=== PATIENT | male | born 1960 | race Caucasian/White ===

== ENCOUNTER → 2024-01-12 06:28 | Day surgery (SDC) | payer BC, SELFPAY | LOC: GI 06:28 | PROVIDERS: ATTENDING PHYSICIAN Internal Medicine | DX: Z12.11 Encounter for screening for malignant neoplasm of colon (principal); Z86.010 Personal history of colon polyps; K64.8 Other hemorrhoids; K57.30 Diverticulosis of large intestine without perforation or abscess without bleeding; K63.5 Polyp of colon | CPT/HCPCS: 45380; 88305 ==

== ENCOUNTER → 2024-02-13 15:55 | Outpatient (REF) | payer BC, SELFPAY | LOC: HWRCS 15:55 | PROVIDERS: ATTENDING PHYSICIAN Internal Medicine Cardiovascular Disease; FAMILY PHYSICIAN Internal Medicine | DX: R01.1 Cardiac murmur, unspecified (principal) | CPT/HCPCS: 93306 ==

== ENCOUNTER 2024-02-23 06:53 | Day surgery (SDC) | payer BC, SELFPAY | END 2024-02-23 12:00 | disposition home or self-care (01) | LOC: CATH 06:53 | PROVIDERS: ATTENDING PHYSICIAN Internal Medicine Cardiovascular Disease; FAMILY PHYSICIAN Internal Medicine; OTHER PHYSICIAN Internal Medicine Cardiovascular Disease | DX: I34.0 Nonrheumatic mitral (valve) insufficiency (principal) | CPT/HCPCS: 93312; 93320; 93325 ==

== ENCOUNTER → 2024-04-02 06:12 | Day surgery (SDC) | payer BC, SELFPAY ==
[2024-04-02] VITALS (11 sets, daily range): BP systolic 110–160; BP diastolic 61–85; BMI 27.3
[2024-04-02 07:00] LABS: Hematocrit 46.5 % (39.0-52.0); Mean Corp Hgb Conc. 34.4 g/dL (33.0-37.0); Mean Corpuscular Hgb 30.7 pg (27.0-31.0); Mean Corpuscular Volume 89.1 fL (80.0-94.0); Mean Platelet Volume 9.3 fL (7.4-10.4); Platelet Count 140 10^3/uL (130-400); Red Blood Cell Count 5.22 10^6/uL (4.70-6.10); Red Cell Dist. Width 12.7 % (11.5-14.5); White Blood Cell Count 5.9 10^3/uL (4.8-10.8)
[2024-04-02 07:02] LABS: Blood Urea Nitrogen 18 mg/dl (9-20); Calcium 9.5 mg/dl (8.4-10.2); Carbon Dioxide 29 mmol/L (22-30); Chloride 103 mmol/L (98-107); Estimated Creatinine Clearance 111 ml/min; Glucose 108 mg/dl (70-99); Potassium 4.1 mmol/L (3.5-5.1); Sodium 143 mmol/L (135-145); eGFR > 60.00
[2024-04-02] MEDS: LOW STRENGTH ASPIRIN 324 MG PO (07:22)
[2024-04-02] MEDS: NSS 297 ML IV (07:23)
[2024-04-02 08:33] LABS: ACT-LR - POC 224 Seconds (116-155)
[2024-04-02 09:35] LABS: HDL Cholesterol 41 mg/dl; LDL Cholesterol, Calculated 140 mg/dl; Total Cholesterol 196 mg/dl (50-199); Triglyceride 77 mg/dl (10-149); Very Low Density Lipoprotein 15 mg/dl (0-30)
--- NOTE | 2024-04-02 14:04 | ITS.CL.CATH ---
Business And Marketing Teacher - Catheterization
Cardiac Catheterization
Procedure Report:
LEFT HEART CATHETERIZATION
Date of Procedure: April 02, 2024
Referring: Dr. Trever Tellez
PROCEDURES:
1. Coronary angiography
2. Hemodynamic assessment of LAD with a Hope Omni wire. The iFR serially measured just above the ischemic threshold
INDICATION: Severe mitral regurgitation
ACCESS: Right radial artery, 6 Amharic sheath
HEMODYNAMICS : (mmHg)
AO (s/d) : 125/79
CORONARY FINDINGS: Pericardial calcification is noted on fluoroscopy
DOMINANCE: Right
LEFT MAIN: 30% ostial narrowing with no pressure dampening upon engagement of a 6 Amharic diagnostic catheter
LEFT ANTERIOR DESCENDING: The LAD arises normally from the left main and runs in the anterior interventricular groove. The mid LAD has an eccentric 40% stenosis that in some of the caudal views looks more significant. The iFR in the LAD measured
above the ischemic threshold at 0.94, 0.93, and 0.93 with a guide catheter disengaged from the left main (see below)
CIRCUMFLEX: The circumflex supplies a single sizable obtuse marginal branch with minor irregularities
RIGHT CORONARY ARTERY: The right coronary artery is a dominant vessel that is widely patent and supplies a moderate caliber PDA and posterolateral branch
HEMODYNAMIC ASSESSMENT OF THE LAD WITH A VOLCANO OMNI WIRE: The origin of the LAD was cannulated with a 6 Fr JL 4 guide catheter. Intravenous heparin was administered and the ACT was followed during the procedure. Two hundred micrograms of
intracoronary nitroglycerin was given through the guide catheter. The guide catheter was disengaged from the left main origin and a Hope Omni wire was advanced to the guide catheter tip and normalized to guide catheter pressure while the guide
was disengaged from the left main. The Omni wire was then carefully manipulated across the stenosis in the mid LAD with the iFR serially measuring above the ischemic threshold at 0.94, 0.93, and 0.93. The Omni wire was withdrawn to the guide
catheter tip where the resting Pd/Pa measured 1.01 confirming no significant baseline drift.
RADIATION SUMMARY: Fluoro Time (min): 5.2, Dose (mGy): 607, DAP (Gy.cm2) : 44.1
Closure Device: TR band
CONCLUSIONS
1. Noncritical coronary artery disease with moderate eccentric stenosis in the mid LAD with the iFR measuring just above the ischemic threshold at 0.94, 0.93, 0.93.
RECOMMENDATIONS
1. Follow-up with Dr. Tellez for planned mitral valve repair.
Copy to: Dr. Dominic Alcantara, Dr. Trever Tellez
== END | disposition home or self-care (01) ==
LOC: CATH 06:12
PROVIDERS: ATTENDING PHYSICIAN Internal Medicine Interventional Cardiology; OTHER PHYSICIAN Internal Medicine Cardiovascular Disease
DX: I34.0 Nonrheumatic mitral (valve) insufficiency (principal); I25.10 Atherosclerotic heart disease of native coronary artery without angina pectoris; E78.2 Mixed hyperlipidemia; Z79.82 Long term (current) use of aspirin
CPT/HCPCS: 93799; C1894; C1769; 80048; 80061; 85027; 85347; 93454; Q9967

== ENCOUNTER → 2024-04-04 10:28 | Outpatient (REF) | payer BC, SELFPAY | LOC: RAD 10:28 | PROVIDERS: ATTENDING PHYSICIAN Thoracic Surgery (Cardiothoracic Vascular Surgery); FAMILY PHYSICIAN Internal Medicine | DX: I34.0 Nonrheumatic mitral (valve) insufficiency (principal); Z01.818 Encounter for other preprocedural examination | CPT/HCPCS: 71275; 74174; Q9967 ==

== ENCOUNTER 2024-04-09 05:02 | Inpatient (IN) | payer BC, SELFPAY ==
[2024-04-05 08:24] VITALS: BMI 27.3
[2024-04-05 08:49] LABS: % Basophils 0.9 % (0-2); % Eosinophils 1.4 % (0-6); % Immature Granulocytes 0.2 % (0-0.5); % Lymphocytes 25.3 % (20.5-51.1); % Monocytes 7.2 % (1.7-9.3); Absolute Basophils 0.1 10^3/uL (0-0.2); Absolute Eosinophils 0.1 10^3/uL (0-0.7); Absolute Lymphocytes 1.5 10^3/uL (1.2-3.4); Absolute Monocytes 0.4 10^3/uL (0.1-0.6); Absolute Neutrophils 3.8 10^3/uL (1.4-6.5); Hematocrit 46.2 % (39.0-52.0); Mean Corp Hgb Conc. 34.6 g/dL (33.0-37.0); Mean Corpuscular Hgb 30.7 pg (27.0-31.0); Mean Corpuscular Volume 88.5 fL (80.0-94.0); Mean Platelet Volume 9.7 fL (7.4-10.4); Nucleated Red Blood Cells % 0 % (-); Platelet Count 144 10^3/uL (130-400); Red Blood Cell Count 5.22 10^6/uL (4.70-6.10); Red Cell Dist. Width 12.8 % (11.5-14.5); White Blood Cell Count 5.8 10^3/uL (4.8-10.8)
[2024-04-05 09:02] LABS: INR 0.95; PT 12.6 Sec (11.4-14.6)
[2024-04-05 09:03] LABS: APTT 30.5 Sec (23.4-35.0)
[2024-04-05 09:26] LABS: ALT (SGPT) 19 U/L (0-50); AST (SGOT) 25 U/L (17-59); Albumin 4.3 g/dl (3.5-5.0); Alkaline Phosphatase 74 U/L (38-126); Blood Urea Nitrogen 15 mg/dl (9-20); Calcium 10.1 mg/dl (8.4-10.2); Carbon Dioxide 27 mmol/L (22-30); Chloride 104 mmol/L (98-107); Direct Bilirubin 0.2 mg/dl (0.0-0.4); Estimated Creatinine Clearance 113 ml/min; Glucose 100 mg/dl (70-99); Potassium 4.4 mmol/L (3.5-5.1); Sodium 141 mmol/L (135-145); Total Bilirubin 0.9 mg/dl (0.2-1.3); Total Protein 6.7 g/dl (6.3-8.2); eGFR > 60.00
--- NOTE | 2024-04-05 10:16 | CM ---
Chart reviewed. Met with the patient in PAT. Reviewed preoperative and postoperative instructions and restrictions, along with showering guidelines. Gave patient 2 soaps. Patient is independent of ADLS, lives with his in a 2 STH, 3 YOON, 0
DME. Patient is agreeable to a home visit by CT Transitional RN. Plan is for the patient to return home with CT Transitional RN.
[2024-04-05 10:19] LABS: Urine Albumin Negative (Neg - Trace); Urine Bilirubin Negative (Negative); Urine Character Clear (Clear); Urine Color Yellow; Urine Glucose Negative (Negative); Urine Ketone Negative (Negative); Urine Leukocyte Negative (Negative); Urine Nitrite Negative (Negative); Urine Occult Blood Negative (Negative); Urine Urobilinogen Negative (Neg - 1+)
[2024-04-05 12:59] LABS: Glycohemoglobin (HgbA1c) 5.3 % (4.0-5.6)
[2024-04-09] VITALS (22 sets, daily range): BP systolic 98–145; BP diastolic 59–93; BMI 26.2
[2024-04-09] MEDS: BACTROBAN 2% OINTMENT 1 APPLIC NASAL ×2 (05:49→19:17)
[2024-04-09] MEDS: MAGNESIUM OXIDE 500 MG PO (05:50)
[2024-04-09] MEDS: LOPRESSOR 25 MG PO (05:50)
[2024-04-09] MEDS: PROTONIX 40 MG PO (05:50)
--- NOTE | 2024-04-09 06:01 | W.CVOR.SURPR ---
CVOR Surgeon Immed Pre Op
-
I have examined this patient prior to performance of the scheduled procedure.
The patient's condition is unchanged from the time of the dictated/written History and
Physical and the patient is able to undergo the scheduled procedure.
MV repair
[2024-04-09 07:46] LABS: ACT+ - POC 101 Seconds (82-134)
[2024-04-09 08:02] LABS: Urine Albumin Negative (Neg - Trace); Urine Bilirubin Negative (Negative); Urine Character Clear (Clear); Urine Color Yellow; Urine Glucose Negative (Negative); Urine Ketone Negative (Negative); Urine Leukocyte Negative (Negative); Urine Nitrite Negative (Negative); Urine Occult Blood Negative (Negative); Urine Urobilinogen 1+ (Neg - 1+)
[2024-04-09 08:47] LABS: ACT+ - POC 608 Seconds (82-134)
[2024-04-09 09:17] LABS: B.E. - POC -1.6 mmol/L; Glucose - POC 123 mg/dl (70-99); HCO3 - POC 23 mmol/L (21-29); Hematocrit - POC 39 % PCV (42-52); Hemodilution- POC No; Hemoglobin Calculated - POC 13.1; Ionized Calcium - POC 1.19 mmol/L (1.12-1.27); PCO2 - POC 36 mmHg (35-45); PO2 - POC 627 mmHg (80-100); Potassium - POC 4.1 mmol/L (3.6-5.0); Sodium - POC 140 mmol/L (135-145); pH - POC 7.41 (7.35-7.45)
[2024-04-09 09:28] LABS: ACT+ - POC 533 Seconds (82-134)
[2024-04-09 09:48] LABS: B.E. - POC 1.1 mmol/L; Glucose - POC 113 mg/dl (70-99); HCO3 - POC 26 mmol/L (21-29); Hematocrit - POC 34 % PCV (42-52); Hemodilution- POC Yes; Hemoglobin Calculated - POC 11.4; Ionized Calcium - POC 1.04 mmol/L (1.12-1.27); PCO2 - POC 41 mmHg (35-45); PO2 - POC 480 mmHg (80-100); POC Comment CPB; Sodium - POC 140 mmol/L (135-145); pH - POC 7.41 (7.35-7.45)
[2024-04-09 09:57] LABS: ACT+ - POC 461 Seconds (82-134)
[2024-04-09 10:16] LABS: B.E. - POC 2.4 mmol/L; Glucose - POC 104 mg/dl (70-99); HCO3 - POC 28 mmol/L (21-29); Hematocrit - POC 33 % PCV (42-52); Hemodilution- POC Yes; Hemoglobin Calculated - POC 11.1; Ionized Calcium - POC 1.07 mmol/L (1.12-1.27); PCO2 - POC 48 mmHg (35-45); PO2 - POC 468 mmHg (80-100); POC Comment CPB; Potassium - POC 4.7 mmol/L (3.6-5.0); Sodium - POC 141 mmol/L (135-145); pH - POC 7.38 (7.35-7.45)
[2024-04-09 10:23] LABS: ACT+ - POC 422 Seconds (82-134)
[2024-04-09 11:11] LABS: B.E. - POC 0.9 mmol/L; Glucose - POC 113 mg/dl (70-99); HCO3 - POC 26 mmol/L (21-29); Hematocrit - POC 33 % PCV (42-52); Hemodilution- POC Yes; Hemoglobin Calculated - POC 11.3; Ionized Calcium - POC 1.09 mmol/L (1.12-1.27); PCO2 - POC 43 mmHg (35-45); PO2 - POC 378 mmHg (80-100); POC Comment CPB; Potassium - POC 4.8 mmol/L (3.6-5.0); Sodium - POC 142 mmol/L (135-145); pH - POC 7.39 (7.35-7.45)
[2024-04-09 11:12] LABS: ACT+ - POC 93 Seconds (82-134)
--- NOTE | 2024-04-09 11:14 | CM ---
Chart reviewed. Patient is in the OR today. Patient is independent f ADLS, lives with his in a 2 STH, 3-4 YOON, 0 DME. Plan is for the patient to return home with CT Transitional RN. CM to follow
[2024-04-09 11:30] LABS: B.E. - POC -2.1 mmol/L; Glucose - POC 111 mg/dl (70-99); HCO3 - POC 23 mmol/L (21-29); Hematocrit - POC 30 % PCV (42-52); Hemodilution- POC No; Hemoglobin Calculated - POC 10.3; Ionized Calcium - POC 1.27 mmol/L (1.12-1.27); O2 Saturation %Calculated-POC 98.9 5 (92-96); PCO2 - POC 39 mmHg (35-45); PO2 - POC 129 mmHg (80-100); POC Comment POST; Sodium - POC 143 mmol/L (135-145); pH - POC 7.37 (7.35-7.45)
--- NOTE | 2024-04-09 11:33 | W.PN.CT.SURG ---
CT Surgery Operative Note
-
CARDIAC SURGERY OPERATIVE REPORT
Preoperative Diagnosis: Myxomatous mitral valve degeneration with severe insufficiency
Postoperative Diagnosis: Same
Procedure(s) Performed:
1. Right mini thoracotomy with right femoral artery and vein cannulation under MARCO guidance
2. Radical mitral valve repair (38 mm band annuloplasty, 3 pairs of [place]-Marlo cords with tube placed to the A2 and A3 scallop and 1 to the P2 P3 scallop, cleft closure between P2 and P3, commissural plasty at A3 P3)
3. Placement temporary ventricular pacing wires
4. Trans esophageal echocardiography
Date of Surgery: 04/09/2024
Comorbidities:
1. Myxomatous mitral valve degeneration, type II pathology with prolapse and multiple torn cords of the A2 and A3 scallops
2. Severe mitral valve insufficiency, symptomatic under MARCO attempt
3. Hypertension
4. Hyperlipidemia
5. Large hiatal hernia
6. Nephrolithiasis
Attending Surgeon: Trever Tellez MD, MS
Assistants: Tania Mayes PA-C (present and necessary for retraction, suctioning, exposure, suture management, wound closure, etc. under my direction)
Anesthesiology: Timothy Dwyer MD and Hailee Del Real CRNA
Scrub and Circulating RNs: Berta Emery, JOSE R, Jacki Chiang RN
Circular Saw Edge Fuser: Carl Collado CCP
Anesthesia: GETA
EBL: per perfusion records
Products: None
CPB Time: 124 minutes
Aortic Cross Clamp Time: 98 minutes
Indication(s) for Procedures: This is a 63-year-old male with known mitral valve insufficiency. He underwent an attempted transesophageal echocardiogram and went into respiratory distress requiring us to abort the procedure. He works at a
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 He denies any brennan change in his exercise capacity. However given his response to the transesophageal echocardiogram, I would deem that he is bordering stage D symptomatology and therefore class I
indication. At the current time he most likely fits a 2 indication. Surprisingly, he denies any history of atrial fibrillation and there is nothing documented in his records. Given the repairability of his valve, his age, he was offered surgery
which she accepted..
Mitral Valve Description: Markedly abnormal valve, type II pathology with prolapse and flail segment with multiple torn cords along the A2 A3 scallops. Both leaflets were thickened. There was a large cleft between P2 and P3. The annulus was
dilated in both the AP and trigonal dimensions. The anterior leaflet measured approximately 32 mm in length. The jet was very eccentric and emanating from the torn cords and prolapse of the A2 A3 segment resulting in a large Coanda effect. There
was some minor calcification along the free margin of P3.
Implants:
1. 38 mm band angioplasty, Gonzalez physio flex, SN [id number]
2. 3 pairs of CV 4 [place]-Marlo cords, cord X system
3. Multiple 5-0 Prolene's
Specimen:
1. Anteriorly the cords
Findings: His left ventricular ejection fraction preoperatively was essentially normal at 60% with no significant regional wall motion abnormalities. Following surgery his EF remained the same at 60% with no new regional wall motion abnormalities.
His left atrium was severely dilated to approximately 7 cm. He was in a sinus bradycardic rhythm. His mitral valve was very abnormal in appearance with prolapse and flail segments at the A2 and A3 scallops. There was also a large cleft between P2
and P3. The valve itself was asymmetrically dilated in both the AP and trigonal aspects. The valve was repaired using a total of 11 nonpledgeted 2 Ethibond sutures from trigone to trigone securing a 38 mm band annuloplasty in place with core
knots. I placed 3 pairs of CV 4 [place]-Marlo chordal system to the posterior medial papillary muscle head with 2 of the cords going to the A2 and A3 segments in the last cord going to the P2 P3 segment. The cleft between P2 and P3 was closed with 5-0
Prolene. Interestingly after repairing the valve, he had a new anteriorly directed jet from prolapsing of P3 at the commissure. The commissure itself was quite thickened representing a large scalp spanning from a 3 into P3. I performed a
commissural plasty with a 5-0 Prolene [id number] suture here. Testing of the valve revealed good coaptation and good competency. His septal to coaptation distance was quite large at approximately 3 cm. After coming off of cardiopulmonary
bypass and evaluate the valve, he had no residual mitral valve insufficiency, the mean gradient across the valve was 2 mmHg. He had no systolic anterior motion of the leaflets. There were no new regional wall motion abnormalities and he was back
into his sinus bradycardic rhythm. He did not require any blood products. Of note, he had dense calcification along his right atrial right ventricular junction and on the base of the heart extending onto the right atrium. The pericardium itself
is also quite thickened. He must of had some previous episode of pericarditis as he denied any history of radiation to his chest.
Description of Procedure: The patient was brought to the operating room and placed supine in the table with their right side bumped up and right arm down. Arterial and central access was performed by anesthesiology. The patient was prepped from chin
to toes in the typical sterile fashion. Trans esophageal evaluation of cardiac function and all valvular structures was conducted. Before commencing, a time out was performed by all members of the team. All were in agreement with the procedure and
laterality and I proceeded. A small right groin incision was made to expose the common femoral artery and vein. A total of 60,000 units of heparin was given. A 5-6 cm right lateral thoracotomy was performed over the 4th intercostal space verified by
visualization of the hilum. The common femoral artery and vein were cannulated under transesophageal guidance using open Seldinger technique. The arterial line was verified to have an appropriate bounce and pressure correlating with testing. Once
the ACT was above 400, retrograde autologous priming was done and we commenced cardiopulmonary bypass. Target core temperature was 34�C.
Carbon dioxide was used to flood the field. The course of the phrenic nerve was identified to prevent injury. The pericardium was opened and two stay sutures were placed to facilitate a ``pericardial table.�� The oblique sinus was developed followed
by the inter atrial groove. An antegrade root vent was inserted and secured with a pursestring suture. The pump flow and mean arterial pressure were lowered and an aortic cross clamp was applied to the ascending aorta. A total of 1.2L initial dose
of Antegrade cardioplegia was delivered. We had rapid electro myocardial quiescence at 300 cc of cardioplegia. The ventricle was monitored for distension by echocardiogram during this time. The left atrium was incised and enlarged. A left atrial
lift retractor was placed. The mitral valve was inspected. The mitral valve was repaired as described above. The left atriotomy was closed with 3-0 prolene in a running fashion leaving a ventricular vent in place to de-air. After filling the heart,
the vent was removed and the prolene was secured with a corknot. Unipolar ventricular pacing wire was placed on the base of the right ventricle. The patient was placed into Trendelenburg position and pump flows were lowered. The clamp was slowly
removed with the root vent turned on. De-airing maneuvers were performed. We started to rewarm with a target of 36.5�C.
As the heart recovered, the mitral valve and ventricular function were assessed under transesophageal echocardiogram. The LV vent and root vents were removed. Once weaning parameters were satisfactory, cardiopulmonary bypass flow was lowered until
we were off cardiopulmonary bypass the mitral valve was inspected again. All surgical sites were inspected for hemostasis and appeared appropriate. The lines were clamped and the arterial was relocated to the venous cannula to give back volume. A
test dose of protamine was delivered and patient was monitored for any adverse reactions followed by complete protamine dosing. The femoral vessels were decannulated and repaired as indicated. The pericardium was approximated with 2-0 ethibond
sutures secured with corknots. One 19F Abimael drain remained in the pleural space and threaded into the pericardium. There was an excellent palpable distal to the FRAUD MANAGER cannulation site. Local analgesia was injected to the thoracotomy. The incision was
closed in layers in a running fashion.
All instrument, sponge, and needle counts were confirmed to be correct x 2 at the end of the operation. The patient was transferred to the cardiac intensive care unit in critical but stable condition.
I, Dr. Trever Tellez, was present, scrubbed for, and performed all critical elements of this procedure.
Trever Tellez MD, MS
Cardiothoracic Surgeon
[facility]
This dictation was created using the TSO3 dictation system. Please excuse any grammatical, typographical, or 'sound alike' errors
--- NOTE | 2024-04-09 11:46 | CON.INTV ---
Consultation
Consultation Request
Date/Time Consultation Requested: 04/09/2024 - 1123
Date/Time Consultation Performed: 04/09/2024 - 1156
Requesting Provider: YASMEEN Nolasco
Performing Provider: David De La Cruz MD
Reason for Consultation: s/p MV repair
Medical History
-
Chief Complaint: Elective mitral valve repair
History of Present Illness:
63-year-old male non-smoker with a past medical history of mitral valve regurgitation and colonic polyps who presents with elective mitral valve repair. Patient known to cardiothoracic surgery with last visit with Dr. Tellez on 03/07/2024. He has
known mitral valve insufficiency, with MARCO performed on 02/23/2024 however due to issues with his airway with hypoxia at this procedure was aborted. Prior TTE from February 07 showed a flail segment of his anterior leaflet towards the posterior medial
commissure. There is also a complex jet mostly occurring posteriorly due to a myxomatous degeneration of his mitral valve with thickening along the free margin mainly towards the anterior leaflet with flail and multiple torn cords. Patient denies
shortness of breath. Given the severity of his mitral valve insufficiency he met symptomatology stage C 2 criteria for intervention. He presents today for mitral valve repair which he obtained without complications and was transferred to the CVICU
postoperatively. Bone Process Operator service is now consulted for additional management/recommendations.
When I saw the patient he was in bed, intubated on AC/VC at 12/550/60%/5, with PS of 5. PIP was 18 cmH2O, VTe 437 mL and breathing at 13 breaths/min. He was saturating at 98%, heart rate 60, BP via A-line: 174/94, PAP: 42/27 and CO/CI: 5.99/2.66.
BP via NIBP: 133/93. He has a right pleural/mediastinal chest tube. He is on insulin drip at 2.6 units/hr, Precedex 0.5mcg/kg/hr and nitro drip was restarted 5mcg/min.
PMHx: Mitral valve regurgitation, colonic polyps, nephrolithiasis
PSHx: MARCO
Past Medical History
Past Medical History: Other (Above as per HPI)
Past Surgical History: Other (Above as per HPI)
Social History
Tobacco: Non-smoker
Alcohol: None
Drug: None
Personal:
Living: With Family
Employment: Employed ([employer] failed)
Family History
Family History: Reviewed & Not Pertinent
Allergies / Home Medications
Allergies
Allergy/AdvReac Type Severity Reaction Status Date / Time
No Known Allergies Allergy Unverified 04/03/24 16:05
Home Medications
�Medication �Instructions �Recorded �Confirmed �Last Taken �Type
aspirin 81 mg tablet,delayed 81 mg PO DAILY #1 tab 04/02/24 04/09/24 04/08/24 08:00 Rx
release
atorvastatin 20 mg tablet 20 mg PO DAILY #90 tabs 04/02/24 04/09/24 04/08/24 08:00 Rx
Review of Systems
-
Unable to Obtain full review of systems at this time due to: Patient Intubation
Vitals / Labs / Diagnostic Testing
Vital Signs
Temp Pulse Resp BP Pulse Ox
97.6 F 75 18 135/91 99
04/09/24 05:46 04/09/24 05:46 04/09/24 05:46 04/09/24 05:12 04/09/24 05:46
Microbiology
04/05/24 08:36 Nose MRSA Screen - Final
No Methicillin Resistant Staphylococcus aureus isolated.
Diagnostic Testing:
Physical Exam
-
HEENT: Normocephalic, Anicteric and Other (ETT in place)
Cardiovascular: S1/S2, Rub and Peripheral Edema (negative)
Respiratory: Wheeze (negative), Rales (negative), Rhonchi (negative), Non-Labored Respirations and Other (Mechanical breath sounds heard bilaterally)
GI: Soft, Non Distended, Non Tender and Normal Bowel Sounds
Neurology: Tremors (negative) and Other (Lethargic/sedated but awakens to verbal/tactile stimuli)
Skin: Warm and Dry
General: Respiratory Distress (negative), Comfortable, Chills (negative) and Sweats (negative)
Assessment
-
Assessment: 63-year-old male non-smoker with a past medical history of mitral valve regurgitation and colonic polyps who presents with elective mitral valve repair. Patient known to cardiothoracic surgery with last visit with Dr. Tellez on
03/07/2024. He has known mitral valve insufficiency, with MARCO performed on 02/23/2024 however due to issues with his airway with hypoxia at this procedure was aborted. Prior TTE from February 07 showed a flail segment of his anterior leaflet towards the
posterior medial commissure. There is also a complex jet mostly occurring posteriorly due to a myxomatous degeneration of his mitral valve with thickening along the free margin mainly towards the anterior leaflet with flail and multiple torn cords.
Patient denies shortness of breath. Given the severity of his mitral valve insufficiency he met symptomatology stage C 2 criteria for intervention. He presents today for mitral valve repair which he obtained without complications and was
transferred to the CVICU postoperatively. Bone Process Operator service is now consulted for additional management/recommendations.
Chronic conditions TELEVISION CAMERA OPERATOR: Mitral valve regurgitation, colonic polyps, nephrolithiasis
Impression:
#Mitral valve regurgitation with flail mitral leaflet and prolapse of the posterior mitral leaflet s/p mitral valve repair (POD #0)
#Anemia
#Thrombocytopenia
#Nephrolithiasis
Plan:
Ventilator settings reviewed
FiO2 will be weaned to maintain SpO2 >90-94%
Minute ventilation will be adjusted
Arterial blood gases will be monitored
Spontaneous breathing trial will be attempted with hopeful extubation after anesthesia/sedation wear off
prn nebulized bronchodilators
Pulmonary artery catheter parameters will be followed
Pressors/antihypertensive/inotropes/diuretics will be provided as needed
Maintain MAP>65
Replete electrolytes with K>4, Mg>2
Monitor chest tube output
Monitor hemoglobin
Monitor platelet count and coags
Transfuse blood products as needed to maintain Hb>7g/dL, plt>50k (given post-operative status)
CT surgery managing chest tubes
Monitor blood sugar to maintain euglycemia with goal BG 140-180
Insulin drip per protocol
Aspiration precautions
VAP prevention protocol
DVT prophylaxis
Early nutrition
Early mobilization
Critical care statement: A total of 46 minutes of critical care time was provided for this patient today. This includes management of ventilator, spontaneous breathing trial, arterial blood gases, pressors, of unstable vital signs, evaluation of the
patient at bedside, reviewing the patient's pertinent medical records including radiographs, microbiology, laboratory evaluations, and discussion with primary team and critical care nursing.
[2024-04-09 11:55] LABS: Glucose - Point of Care 125 mg/dl (70-99)
[2024-04-09 12:03] LABS: B.E. -1.3 mmol/L; HCO3 24.3 mmol/L (21-28); Ionized Calcium 1.18 mMOL/L (1.15-1.33); PCO2 43 mmHg (35-48); PO2 140 mmHg (83-108); Potassium 4.2 mMOL/L (3.5-5.1); Sodium 137 mMOL/L (136-145); pH 7.36 (7.35-7.45)
[2024-04-09 12:12] LABS: Blood Urea Nitrogen 14 mg/dl (9-20); Estimated Creatinine Clearance > 125 ml/min; Glucose 119 mg/dl (70-99); INR 1.39; Magnesium 2.5 mg/dl (1.6-2.3); PT 16.9 Sec (11.4-14.6)
[2024-04-09 12:13] LABS: APTT 28.8 Sec (23.4-35.0); Hematocrit 37.1 % (39.0-52.0); Hemoglobin 12.9 g/dL (13.0-18.0); Platelet Count 102 10^3/uL (130-400)
[2024-04-09] MEDS: DILAUDID 0.5 MG IV ×2 (12:15→23:41)
--- NOTE | 2024-04-09 12:18 | PTCARENOTE ---
Pt received from CVOR at 1145; Sedated and intubated; SB w/ 1 st AVB rhythm on monitor; VSS; Epicardial V-wire present with temporary pacermaker turned off; DP and radial pulses present; Lungs diminished at bases; ETT size 8 positioned and secured
at 24 cm right lip; Ventilator settings SIMV 550/12/5/5 FiO2 60%; CTx1 to -20 cm wall suction draining bloody drainage - no air leak, tidaling, or crepitus noted; Hypoactive BS; Roque catheter in place draining clear, yellow urine; Right axillary
incision site approximated and CDI, Right chest incision approximated and CDI, right groin puncture site approximated and CDI;A-line in left radial artery - line zeroed and level; David floated to 50 cm in right IJ Cordis; PIVx?;
Levo/insulin/precedex infusing - see nursing flowsheets for further details. See nursing documentation for further details.
CI:
CO:
SVR:
--- NOTE | 2024-04-09 12:22 | PTCARENOTE ---
Pt received from CVOR at 1145; Sedated and intubated; SB with 1st AVB rhythm on monitor; VSS; Epicardial V-wire present with temporary pacermaker turned off; DP and radial pulses present; Lungs diminished at bases; ETT size 8 positioned and secured
at 24 cm right lip; Ventilator settings SIMV 550/12/5/5 FiO2 60%; CTx1 to -20 cm wall suction draining bloody drainage - no air leak, tidaling, or crepitus noted; Hypoactive BS; Roque catheter in place draining clear, yellow urine; Right axillary
incision site approximated and CDI , Right chest incision approximated and CDI, right groin puncture approximated and CDI; A-line in left radial artery, David floated to 50 cm in right IJ Cordis - all lines zeroed and level; PIVx1;
Levo/insulin/precedex/nitro infusing - see nursing flowsheets for further details; See nursing documentation for further details.
CI: 2.66
CO: 5.99
SVR: 868
[2024-04-09] MEDS: VERSED 0.5 MG IV (12:36)
--- NOTE | 2024-04-09 12:59 | PTCARENOTE ---
NGT insertion attempted by GERA Solorio - CXR done x2 to confirm placement; Attempts unsuccessful at this time - will reattempt at later time
--- NOTE | 2024-04-09 13:19 | PTCARENOTE ---
RT in room and pt placed on CPAP at 1315. ABG's due at 1345
[2024-04-09 13:36] LABS: Glucose - Point of Care 143 mg/dl (70-99)
[2024-04-09] MEDS: ANCEF 10 IV ×2 (13:37)
[2024-04-09] MEDS: LIPITOR PO (13:38)
[2024-04-09] MEDS: NEURONTIN PO ×2 (13:38→15:10)
[2024-04-09] MEDS: NSS 500 IV (13:38)
[2024-04-09] MEDS: TYLENOL PO (13:39)
[2024-04-09 14:00] LABS: B.E. -0.7 mmol/L; HCO3 24.2 mmol/L (21-28); Ionized Calcium 1.14 mMOL/L (1.15-1.33); O2 Saturation % 99.8 % (94-98); PCO2 40 mmHg (35-48); PO2 105 mmHg (83-108); Potassium 4.4 mMOL/L (3.5-5.1); Sodium 136 mMOL/L (136-145); pH 7.39 (7.35-7.45)
--- NOTE | 2024-04-09 14:11 | PTCARENOTE ---
ABG's reviewed; RT at bedside; Pt extubated at 1410; Pt placed on 6L NC; IS 1000 ml
[2024-04-09 14:18] LABS: Glucose - Point of Care 129 mg/dl (70-99)
[2024-04-09] MEDS: CALCIUM CHLORIDE 10% SYRINGE 50 ML IV (14:36)
[2024-04-09] MEDS: CALCIUM CHLORIDE 10% SYRINGE 50 MG IV (14:36)
[2024-04-09 15:02] LABS: Glucose - Point of Care 128 mg/dl (70-99)
[2024-04-09] MEDS: ZOFRAN 4 MG IV (15:07)
--- NOTE | 2024-04-09 15:26 | W.PN.UPDATE ---
Update Note
Progress Note Update
Crystalloid:� 1200
U.O.:� 550
UF:� 400
Blood:� None
Wires:� V Wires
Inotropes:� None
Pressors:� levophed
Sedatives:�Precedex
�
NEURO: sedated on precedex, pupils +2mm B/L
RESP: #8OT @23 14/550/60/5 Lungs clear B/L. chest tubes to -20cm suction. Sanguineous drainage
CV: RRR +S1, S2, no S3, no�rub, no murmur. Dermabond to median sternotomy. RIJ w/[place] locked @ 50cm
EXT: no edema, +2/4 DP pulses B/L, no femoral bruit,Left radial art line
: Roque with clear yellow urine
�
A/P: POD #0 s/p Radical mitral valve repair (38 mm band annuloplasty, 3 pairs of [place]-Marlo cords with tube placed to the A2 and A3 scallop and 1 to the P2 P3 scallop, cleft closure between P2 and P3, commissural plasty at A3 P3)
MARCO: EF�60%
- wean and extubate
- Monitor CT and urine output
- Follow up labs and CXR
- Wean levophed for maps >65
- Will start ASA tonight
- EKG pending and will send to cards
- Cards consulted
�
# acute surgical blood loss anemia-expected
- trend CBC
- will start IV iron infusions
�
#large haital hernia
-NGt attempted
- Avoid nausea/vomiting as able
�
# Hyperlipidemia
- resume�statin
[2024-04-09 15:41] LABS: Hematocrit 38.5 % (39.0-52.0); Hemoglobin 13.8 g/dL (13.0-18.0); Platelet Count 108 10^3/uL (130-400)
--- NOTE | 2024-04-09 16:00 | PTCARENOTE ---
iCal repleted x1. PRN IV Zofran given at 1506 for period of nausea - no recurrent episodes. Patient resting comfortably in bed.
[2024-04-09 16:03] LABS: Glucose - Point of Care 98 mg/dl (70-99)
--- NOTE | 2024-04-09 16:55 | W.PN.CARDCBS ---
Addendum entered and electronically signed by Debra Mohamud MD 04/09/24 17:35:
I saw and examined the patient.
The Tube Knitter's note was reviewed and I agree with the note.
Comment: Overall patient is doing well. He has been successfully extubated and is doing well. He denies any significant complaints.
Vital signs and lab work reviewed. He is off pressors currently, mentating well. On exam patient is still somnolent but arousable to voice, oriented x 3, regular rhythm and rate, normal S1 and S2, lungs are clear to auscultation anteriorly,
abdomen is soft, nontender, nondistended with active bowel sounds, warm extremities
[place] catheter in place with cardiac index last noted to be 2.45.
EKG without any ischemic changes.
Recommendations:
1. Continue postoperative care, encourage out of bed to a chair, incentive spirometry as tolerated.
2. Continue to monitor hemodynamics postoperatively. Currently not on any support.
3. Continue home aspirin and statin.
Debra Mohamud MD, [facility], [facility]
Original Note:
Today's Communication / Plan
-
ECG without ischemic changes
Will follow
Impression / Plan
-
PCP: Dr. Cj Balderas
Cardiology: Dr. Alcantara
Impression:
s/p radical MV ring repair 04/09/24
h/o severe MR with flail mitral leaflet and prolapse of the posterior mitral leaflet by echo 02/13/24
Noncritical LAD disease by cath 04/02/24
Hyperlipidemia, LDL 129
Plan:
-Patient was seen by his PCP for a new patient evaluation on 12/08/23 and noted to have a new murmur. He was then sent to cardiology for evaluation and had an echo that revealed new severe MR. Patient then had cardiac cath that revealed noncritical
LAD disease. Patient is now s/p MV ring repair.
-Post-op ECG reviewed by me shows sinus bradycardia without ischemic changes
-HD stable without pressors
-LDL was 129 by outpatient labs 12/13/23 and on recheck 04/02/24 they were 140. Patient started on atorvastatin 20 mg daily since 04/02/24, recheck CVE 06/2024.
-No known FH as patient is adopted
Progress Note - Technical Writing Lead/Mgr
Subjective
Date of Service: April 09, 2024
He is extubated and awake, no chest pain
Objective
Labs:
04/09/24 15:32
04/09/24 11:46
Labs
Hgb 13.8 g/dL (13.0-18.0) 04/09/24 15:32
Hct 38.5 % (39.0-52.0) L 04/09/24 15:32
Plt Count 108 10^3/uL (130-400) L 04/09/24 15:32
PT 16.9 Sec (11.4-14.6) H 04/09/24 11:46
INR 1.39 04/09/24 11:46
APTT 28.8 Sec (23.4-35.0) 04/09/24 11:46
Sodium 141 mmol/L (135-145) 04/05/24 08:36
Potassium 4.4 mmol/L (3.5-5.1) 04/05/24 08:36
BUN 14 mg/dl (9-20) 04/09/24 11:46
Creatinine 0.7 mg/dL (0.7-1.3) 04/09/24 11:46
Glucose 119 mg/dl (70-99) H 04/09/24 11:46
Vital Signs and I&O:
Vital Signs
Temp Pulse Resp BP Pulse Ox
98.3 F 59 19 109/65 95
04/09/24 16:00 04/09/24 16:05 04/09/24 16:05 04/09/24 16:00 04/09/24 16:05
Vital Signs
Temp Pulse Resp BP Pulse Ox
98.3 F 59 19 109/65 95
04/09/24 16:00 04/09/24 16:05 04/09/24 16:05 04/09/24 16:00 04/09/24 16:05
Intake & Output
04/07/24 04/08/24 04/09/24 04/10/24
06:59 06:59 06:59 06:59
Intake Total 319.7 / 319.7
Output Total 560 / 560
Balance -240.3 / -240.3
Physical Exam
Physical Exam
GEN: NAD. AAOx3
HEENT: EOMI, MMM
LUNGS: Clear anterolaterally without wheeze
CV: Reg, S1/S2, no murmur
ABD: soft, BS+, NT, ND
EXT: No clubbing, cyanosis, lesions or edema B/L
NEURO: Gross non-focal
SKIN: Warm, dry and pink. No rash
[2024-04-09] MEDS: LOW STRENGTH ASPIRIN 81 MG PO (16:56)
[2024-04-09 18:15] LABS: Glucose - Point of Care 99 mg/dl (70-99)
[2024-04-09] MEDS: ANCEF 5 IV (19:17)
--- NOTE | 2024-04-09 19:30 | PTCARENOTE ---
Gabbs miriam catheter and right radial arterial line removed as per CVNP Sneha C. orders; No complications noted; VSS throughout; no bleeding at arterial line site.
[2024-04-09] MEDS: REGLAN 10 MG IV (20:00)
[2024-04-09 20:11] LABS: Glucose - Point of Care 113 mg/dl (70-99)
--- NOTE | 2024-04-09 20:32 | PTCARENOTE ---
Patient nauseated again - CVPA Ed B. notified and aware. IV Reglan 10 mg ordered and given - patient states relief of nausea at this time
[2024-04-09 22:04] LABS: Glucose - Point of Care 98 mg/dl (70-99)
[2024-04-09] MEDS: SENOKOT-S 1 TABLET PO (22:05)
[2024-04-09] MEDS: NEURONTIN 100 MG PO (22:05)
[2024-04-09] MEDS: TYLENOL 1000 MG PO (22:06)
--- NOTE | 2024-04-09 23:00 | PTCARENOTE ---
report received from previous RN, walking rounds done, assumed care of pt. pt in bed, sleeping. VSS. NSR w 1st degree AVB on monitor, HR 60's. B/L radial and DP pulses palpable. no edema present. heart tones clear. SBP 90s-110s. epicardial wires
intact and off. RIJ cordis intact w KVO infusing. B/L breath sounds present. POX 98% on 2LNC. CT x1 intact to -20cm wall suction, drainage WNL, no air leak present. hypoactive bowel sounds present. insulin gtt infusing via PIV per glycemic protocol.
alexander catheter in place, draining CYU, UO adequate. all surgical sites stable. see worklist for full assessment, VS, and interventions.
[2024-04-09 23:40] LABS: Glucose - Point of Care 88 mg/dl (70-99)
[2024-04-10] VITALS (22 sets, daily range): BP systolic 103–138; BP diastolic 60–106; PULSE 62; O2SAT 9–95; BMI 26.9
--- NOTE | 2024-04-10 00:38 | W.PN.CT ---
Today's Communication / Plan
-
-Plan:
-No major issues overnight. Hemodynamically and neurologically intact
-Successfully extubated on 04/09/24 @ 1410
-Weaned Levophed gtt, remains on insulin gtt per protocol
-Last CI 2.69, U/O since OR 970 mL
-Monitor chest tube output: R pleural threaded into pericardium 50/150
-Cont. current meds (ASA, Amiodarone, Lopressor)
-Will transition off insulin gtt today since pt is not a diabetic
-Telemetry phase once of insulin gtt
-D/C'd swan and a-line yesterday @ 1930
-Will d/c alexander catheter today @ 0600
-Holding mag oxide given mg of 2.5 today
-Maintain temporary PW (will pull likely tomorrow)
-Maintain cordis (will d/c on POD#3)
-Wean off of O2 as tolerated
-Encourage use of IS
-OOB into chair/Ambulate
Assessment / Plan
-
Assessment:
-S/P Right mini thoracotomy with right femoral artery and vein cannulation under MARCO guidance/Radical mitral valve repair (38 mm band annuloplasty, 3 pairs of [place]-Marlo cords with tube placed to the A2 and A3 scallop and 1 to the P2 P3 scallop, cleft
closure between P2 and P3, commissural plasty at A3 P3), by Rosalinda, 04/09/24, pod#1
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
-Severe mitral valve insufficiency, symptomatic under MARCO attempt
-LVEF 55% per intraop MARCO
-Severely dilated left atrium
-Mild dilated right atrium
-Mild AI
-Hypertension
-Hyperlipidemia
-Large hiatal hernia
-Nephrolithiasis
-Diverticulosis
-Small internal hemorrhoids
-Colon polyps S/P polypectomy,
-Acute postop blood loss/Anemia (stable without blood transfusion)
-Acute postop thrombocytopenia (stable without active bleed)
-Acute postop atelectasis
-Acute postop hypovolemia with subsequent hypervolemia
Discussed patient care with: Cardiology, Nursing, Respiratory Therapy, Pharmacy and Care Team
Subjective
Procedure
S/P Right mini thoracotomy with right femoral artery and vein cannulation under MARCO guidance/Radical mitral valve repair (38 mm band annuloplasty, 3 pairs of [place]Mar[place] cords with tube placed to the A2 and A3 scallop and 1 to the P2 P3 scallop, cleft
closure between P2 and P3, commissural plasty at A3 P3), by Rosalinda, 04/09/24
-
Date of Service: April 10, 2024
Pt c/o nausea last night, better this AM after Zofran and Reglan. Otherwise feels well
Objective Data
-
PT 16.9 Sec (11.4-14.6) H 04/09/24 11:46
INR 1.39 04/09/24 11:46
APTT 28.8 Sec (23.4-35.0) 04/09/24 11:46
Vital Signs
Vital Signs
Temp Pulse Resp BP Pulse Ox
99.1 F 66 12 103/60 97
04/10/24 00:00 04/10/24 00:30 04/10/24 00:30 04/10/24 00:00 04/10/24 00:30
CT Intake/Output/Weight
04/09/24 04/09/24 04/10/24
06:59 18:59 06:59
Intake Total 453.6 / 586.4 132.8 / 586.4
Output Total 680 / 920 240 / 920
Balance -226.4 / -333.6 -107.2 / -333.6
SaO2: 97 (2L)
Physical Exam
-
General: Awake, Oriented and AOx3
Cardiovascular: Regular rate & rhythm, No Murmurs, No Rub and No Gallop
Respiratory: Decreased Breath Sounds (at bases, otherwise clear)
Sternum: Stable
Incision: Clean, Dry, Intact and Dressing Intact
Extremities: No Edema
Data Reviewed
-
Lab Results: Results Reviewed
Medications: Active Meds Reviewed
Chest X-Ray: Report Reviewed and Image Reviewed
ECG: Report Reviewed and Image Reviewed
[2024-04-10 02:05] LABS: Glucose - Point of Care 105 mg/dl (70-99)
[2024-04-10 02:15] LABS: Hematocrit 35.3 % (39.0-52.0); Hemoglobin 12.5 g/dL (13.0-18.0); Mean Corp Hgb Conc. 35.4 g/dL (33.0-37.0); Mean Corpuscular Hgb 31.3 pg (27.0-31.0); Mean Corpuscular Volume 88.3 fL (80.0-94.0); Platelet Count 106 10^3/uL (130-400); Red Cell Dist. Width 12.7 % (11.5-14.5); White Blood Cell Count 11.2 10^3/uL (4.8-10.8)
[2024-04-10 02:34] LABS: Blood Urea Nitrogen 18 mg/dl (9-20); Calcium 8.6 mg/dl (8.4-10.2); Carbon Dioxide 25 mmol/L (22-30); Chloride 109 mmol/L (98-107); Estimated Creatinine Clearance 113 ml/min; Glucose 102 mg/dl (70-99); Magnesium 1.9 mg/dl (1.6-2.3); Potassium 4.4 mmol/L (3.5-5.1); Sodium 141 mmol/L (135-145); eGFR > 60.00
--- NOTE | 2024-04-10 03:00 | PTCARENOTE ---
no acute changes. pt oriented x4. SR w 1st degree AVB, PACs. SBP 100s. POX 96% on 2LNC. CT output and UO WNL. all surgical sites stable. AM labs drawn and sent. pt sleeping between care.
[2024-04-10] MEDS: ANCEF 5 IV ×2 (03:30→10:57)
[2024-04-10] MEDS: MAGNESIUM SULFATE 50 IV (03:30)
[2024-04-10 03:41] LABS: Glucose - Point of Care 93 mg/dl (70-99)
--- NOTE | 2024-04-10 03:45 | ECGCV ---
Timothy Dan notified of ECG critical value identified by electronic interpretation on ECG completed on 04/10/24, at 0337.
[2024-04-10] MEDS: TYLENOL 1000 MG PO ×3 (05:46→21:04)
[2024-04-10 05:57] LABS: Glucose - Point of Care 99 mg/dl (70-99)
--- NOTE | 2024-04-10 06:00 | PTCARENOTE ---
alexander catheter d/c'd. pt assisted OOB to chair without incident. VSS.
[2024-04-10 07:07] LABS: Glucose - Point of Care 103 mg/dl (70-99)
--- NOTE | 2024-04-10 07:31 | W.PN.ANS.POP ---
Anesthesia Post Operative
- Anesthesia Post Op Note
Vital Signs Stable-See Nursing Note: Yes
Airway Patent: Yes
Adequate Pain Control: Yes
Change in Mental Status: No
Current Postoperative Nausea & Vomiting: No
Anesthesia Complications: No
General Anesthetic Recall: No
Unplanned Admission: No
Post Op Hydration Adequate: Yes
[2024-04-10 07:53] LABS: Glucose - Point of Care 112 mg/dl (70-99)
--- NOTE | 2024-04-10 08:21 | W.PN.INTV ---
Today's Communication / Plan
Recommendations
Up OOB as tolerated
Removal of chest tube as per CT surgery team
Continue with insulin drip with plans to stop at this afternoon, at which time please start insulin SQ administration with goal BG 140�180
Cardiac rehab consult
Pain control
Maintain SpO2 >90-94%
Once pt is titrated off insulin drip, he will be downgraded to CVICU�telemetry status and Pharmacy Resident/Pulmonary service will sign off at that time. Please call back with any questions or concerns.
Assessment
-
Assessment: 63-year-old male non-smoker with a past medical history of mitral valve regurgitation and colonic polyps who presents with elective mitral valve repair. Patient known to cardiothoracic surgery with last visit with Dr. Tellez on
03/07/2024. He has known mitral valve insufficiency, with MARCO performed on 02/23/2024 however due to issues with his airway with hypoxia at this procedure was aborted. Prior TTE from February 07 showed a flail segment of his anterior leaflet towards the
posterior medial commissure. There is also a complex jet mostly occurring posteriorly due to a myxomatous degeneration of his mitral valve with thickening along the free margin mainly towards the anterior leaflet with flail and multiple torn cords.
Patient denies shortness of breath. Given the severity of his mitral valve insufficiency he met symptomatology stage C 2 criteria for intervention. He presents today for mitral valve repair which he obtained without complications and was
transferred to the CVICU postoperatively. Pharmacy Resident service is now consulted for additional management/recommendations.
Chronic conditions PRODUCT MARKETING INTERN: Mitral valve regurgitation, colonic polyps, nephrolithiasis
Impression:
#Mitral valve regurgitation with flail mitral leaflet and prolapse of the posterior mitral leaflet s/p mitral valve repair (POD #1)
#Anemia
#Thrombocytopenia
#Nephrolithiasis
Plan:
Patient successfully extubated to nasal cannula on 04/09/2024 and is currently on room air breathing comfortably saturating 97%
prn nebulized bronchodilators
Maintain MAP>65
Replete electrolytes with K>4, Mg>2
Monitor chest tube output (right pleural/mediastinal chest tube)
Monitor hemoglobin
Monitor platelet count and coags
Transfuse blood products as needed to maintain Hb>7g/dL, plt>50k (given post-operative status)
CT surgery managing chest tubes
Monitor blood sugar to maintain euglycemia with goal BG 140-180
Insulin drip per protocol --> currently on 1.2 units/hr and plan to be titrated off today. Once titrated off, continue with insulin SQ administration to maintain BG goal as above
Aspiration precautions
DVT prophylaxis
Early nutrition
Early mobilization
Patient remains stable on room air, currently on insulin drip with plans to titrate off this afternoon. Once he has been titrated off insulin drip, he will be downgraded to CVICU�telemetry status and we will sign off at that time. Please call back
with any questions or concerns. Thank you for allowing us to be involved in the care of this patient.
Data:
CXR 04/10/2024:
Interval removal of the endotracheal tube, [place] catheter and nasoenteric tube.
Stable positioning the residual support lines and tubes.
Right greater than left bibasilar atelectasis, slightly improved from prior.
Total time spent today was 75 minutes for this encounter. Time includes reviewing laboratory test/imaging results, reviewing pertinent medical records, obtaining and reviewing medical history, performing an appropriate exam, ordering medications,
tests and procedures. Time also includes documentation of this encounter, coordinating patient care and communicating with other healthcare professionals. Total time does not include separately billed tests performed on this date of service.
Subjective Dataa
Subjective Data
Date of Service:
Date of Service: April 10, 2024
Chief Complaint: Pharmacy Resident Follow Up and Pulmonary Follow Up
Subjective:
Patient was seen and evaluated today at bedside. Patient's daughter, Dottie, at bedside. All questions were answered. He denies SOB, and he is on room air breathing comfortably + saturating 97%. Heart rate 72 and BP 124/74. He is currently on
insulin drip at 1.2 units/hr. Right-sided pleural/mediastinal chest tube in place. No acute events reported from overnight. He denies GARIBAY, SOB, abdominal pain, nausea, fevers or chills.
Review of Systems
General: Other (Negative unless mentioned above)
Objective Data
Data Reviewed
Vital Signs / I&O / Oxygen:
Vital Signs
Temp Pulse Resp BP Pulse Ox
98.2 F 78 18 120/69 97
04/10/24 07:00 04/10/24 09:00 04/10/24 07:00 04/10/24 09:00 04/10/24 08:30
Intake and Output
04/09/24 04/10/24 04/11/24
06:59 06:59 06:59
Intake Total 652.4 / 663.1 153.1 / 153.1
Output Total 1155 / 1175 50 / 50
Balance -502.6 / -511.9 103.1 / 103.1
SaO2 [CPAP/PSV] 97
SaO2 [SIMV] 95
SaO2 97
Nasal Cannula flow liters per 97
minute
Physical Exam
General: Respiratory Distress (negative) and Comfortable
HEENT: Normocephalic and Anicteric
Cardiovascular: Peripheral Edema (negative) and Other (normal rate)
Respiratory: Wheeze (negative), Crackles (negative), Rhonchi (negative), Non-Labored Respirations and Chest Tube (Right-sided pleural/mediastinal chest tube)
GI: Soft, Non Distended, Non Tender and Normal Bowel Sounds
Neurology: AO x 3 and Tremors (negative)
Skin: Warm and Dry
Labs/Micro/Reports
Lab Data
04/10/24 02:04
04/10/24 02:04
Laboratory Results
04/09/24 04/09/24
11:46 13:50
PT 16.9 H
INR 1.39
APTT 28.8
pH 7.36 7.39
pCO2 43 40
pO2 140 H 105
HCO3 24.3 24.2
O2 Delivery Level
[2024-04-10] MEDS: LASIX 40 MG IV (08:42)
[2024-04-10] MEDS: BACTROBAN 2% OINTMENT 1 APPLIC NASAL ×2 (08:44→19:58)
[2024-04-10] MEDS: LOW STRENGTH ASPIRIN 81 MG PO (08:45)
[2024-04-10] MEDS: PROTONIX 40 MG PO (08:45)
[2024-04-10] MEDS: LIPITOR 20 MG PO (08:45)
[2024-04-10] MEDS: MAGNESIUM OXIDE 500 MG PO ×2 (08:45→19:58)
[2024-04-10] MEDS: SENOKOT-S 1 TABLET PO ×2 (08:46→19:57)
[2024-04-10] MEDS: NEURONTIN 100 MG PO ×3 (08:46→21:05)
[2024-04-10 08:57] LABS: Glucose - Point of Care 120 mg/dl (70-99)
--- NOTE | 2024-04-10 09:02 | PTCARENOTE ---
Received pt from nightsinft, walking rounds completed. Pt assessment completed in chair. Pt is AAOx4, no neuro deficits noted. 2nd degree HB, type 1 on the monitor. B/P:108/68, HR 70's. V-wires off, not insulated. Dressing C/D/I. +1 edema bi-lateral
UE, negative edema LE. Pulses palpable throughout. Lungs clear, 97% RA, mid R and bilateral lower lobes diminished. I/S: 1000, pt demonstrated usage, I/S encouraged. R pleural C/T intact. output WNL, C/T dressing old serosanguineous drainage,
ecchymotic above dressing. Pt voided 400ml, clear, yellow urine. BS normal, abdomen soft, non-tender. R side surgical incision approx, CONFERENCE ORGANIZER, surgical glue present. R IJ cordis KVO, L PVA 18g, no redness or edema noted. Plan of care discussed with pt
for day. pt agrees with plan.
[2024-04-10 10:03] LABS: Glucose - Point of Care 118 mg/dl (70-99)
--- NOTE | 2024-04-10 11:32 | CM ---
Chart reviewed. Patient is OOB sitting in the chair. Patient is independent of ADLS, lives with his in a 2 STH, 3-4 YOON, 0 DME. Plan is for the patient to return home with CT Transitional RN. CM to follow
[2024-04-10 11:43] LABS: Glucose - Point of Care 115 mg/dl (70-99)
--- NOTE | 2024-04-10 12:00 | PTCARENOTE ---
Pt received from Christiane RN at 1045; AAOx3, responds to spontaneous stimulation and follows commands; VSS; 2nd degree Type 1 block with 1st degree block on monitor; Epicardial V-wire present with temporary pacemaker turned off; Radial and DP pulses
present; +1 edema present in B/L hands; SpO2 94-98% on RA; CTx1 to wall suction - no air leak, crepitus, or tidaling noted; IS 2000 ml; Normoactive BS; Urinating clear, yellow urine in urinal; All surgical sites intact; PIVx1 #18 left hand; Insulin
gtt turned off as per CVDAYAMI Solorio orders - see nursing flowsheets for further details; See nursing documentation for further details.
--- NOTE | 2024-04-10 12:22 | W.PN.CARDCBS ---
Addendum entered and electronically signed by Dominic Alcantara MD 04/10/24 14:10:
I saw and examined the patient.
The SEGMENTAL WALL INSTALLER or PA's note was reviewed and I agree with the note.
Comment: General: Well developed, well nourished in NAD.
Neck: Supple, no JVD, HJR, carotids +2 B/L, no bruits bilaterally.
Heart: Non displaced PMI, RRR, no murmurs, No S3, S4, no rubs.
Lungs: Scattered rhonchi
Sternal dressings noted
Extremities: No clubbing, cyanosis or edema bilaterally.
Neuro: Grossly nonfocal, awake, alert and oriented x3.
He is doing very well status post mitral valve repair. Remains in sinus rhythm. Discussed with patient and at bedside. Continue to follow on telemetry
Original Note:
Today's Communication / Plan
-
Follow on tele
Impression / Plan
-
PCP: Dr. Cj Balderas
Cardiology: Dr. Alcantara
Impression:
s/p radical MV ring repair 04/09/24
h/o severe MR with flail mitral leaflet and prolapse of the posterior mitral leaflet by echo 02/13/24
Noncritical LAD disease by cath 04/02/24
Hyperlipidemia, LDL 129
Jessica
Plan:
-ECG 04/10/[address] surgery note reviewed and they are holding post-op orders for Lopressor 12.5 mg BID and amiodarone 200 mg TID. Patient was not taking AV niels blockers prior to admission
-LDL was 129 by outpatient labs 12/13/23 and on recheck 04/02/24 they were 140. Patient started on atorvastatin 20 mg daily since 04/02/24, recheck CVE 06/2024.
-No known FH as patient is adopted
HPI: Patient was seen by his PCP for a new patient evaluation on 12/08/23 and noted to have a new murmur. He was then sent to cardiology for evaluation and had an echo that revealed new severe MR. Patient then had cardiac cath that revealed
noncritical LAD disease. Patient is now s/p MV ring repair.
Progress Note - Office Coordinator
Subjective
Date of Service: April 10, 2024
No palpitations
Objective
Labs:
04/10/24 02:04
04/10/24 02:04
Labs
Hgb 12.5 g/dL (13.0-18.0) L 04/10/24 02:04
Hct 35.3 % (39.0-52.0) L 04/10/24 02:04
Plt Count 106 10^3/uL (130-400) L 04/10/24 02:04
PT 16.9 Sec (11.4-14.6) H 04/09/24 11:46
INR 1.39 04/09/24 11:46
APTT 28.8 Sec (23.4-35.0) 04/09/24 11:46
Sodium 141 mmol/L (135-145) 04/10/24 02:04
Potassium 4.4 mmol/L (3.5-5.1) 04/10/24 02:04
BUN 18 mg/dl (9-20) 04/10/24 02:04
Creatinine 0.8 mg/dL (0.7-1.3) 04/10/24 02:04
Glucose 102 mg/dl (70-99) H 04/10/24 02:04
Vital Signs and I&O:
Vital Signs
Temp Pulse Resp BP Pulse Ox
99.4 F 77 18 107/83 96
04/10/24 11:00 04/10/24 12:00 04/10/24 11:00 04/10/24 12:00 04/10/24 12:00
Vital Signs
Temp Pulse Resp BP Pulse Ox
99.4 F 77 18 107/83 96
04/10/24 11:00 04/10/24 12:00 04/10/24 11:00 04/10/24 12:00 04/10/24 12:00
Intake & Output
04/08/24 04/09/24 04/10/24 04/11/24
06:59 06:59 06:59 06:59
Intake Total 652.4 / 663.1 420.5 / 420.5
Output Total 1155 / 1175 870 / 870
Balance -502.6 / -511.9 -449.5 / -449.5
Physical Exam
Physical Exam
GEN: NAD.
HEENT: MMM
LUNGS: No audible wheeze
CV: No murmur
ABD: ND
EXT: No edema B/L
NEURO: Gross non-focal
SKIN: No rash
[2024-04-10] MEDS: FERRLECIT 110 MG IV (13:39)
[2024-04-10] MEDS: NSS IV (13:40)
[2024-04-10] MEDS: TORADOL 15 MG IV (14:10)
--- NOTE | 2024-04-10 17:00 | PTCARENOTE ---
Chest tube removed as per CVNP Sneha C. orders; No complications noted; VSS throughout; Vaseline gauze, 4x4, and tegaderm at incision site.
--- NOTE | 2024-04-10 21:18 | PTCARENOTE ---
Assessment unchanged; VSS; Remains Second Degree Type 1 heart block on monitor; Patient resting comfortably in bed.
--- NOTE | 2024-04-10 21:50 | PTCARENOTE ---
conveyor monitor reviewed with DANIELLE Ventura - patient may be transitioning to complete heart block; Temporary pacemaker connected to epicardial V-wire but still turned off; patient asymptomatic at this time; VSS; no further orders at this time.
[2024-04-11] VITALS (15 sets, daily range): BP systolic 97–138; BP diastolic 62–97; PULSE 65; O2SAT 96–97; BMI 26.9
--- NOTE | 2024-04-11 00:05 | PTCARENOTE ---
Report received from JOSE R Pond at 2250. VS done. See flowsheets. Pt assessed. Pt sleeping. Will awaken to voice. Follows all commands. Extremity strength appears equal. Pt on 2L/NC while sleeping. Sats 96%. BBS present. Decreased to B bases. Pt in
2nd degree Type I with junctional beats vs 3rd degree HB. PA aware. V wire attached to temporary pacemaker. VS changed to q 1 hour. B radial and B DP/PT pulses +2/palpable. Extremities warm, pink. SBP 90-100's. For wound assessments,. see
flowsheets. Belly soft, nontender. Hypoactive bs x 4. For wound assessments, see flowsheets. Due to void on my part of shift. No c/o pain. Ongoing plan of care.
--- NOTE | 2024-04-11 04:05 | PTCARENOTE ---
Pt sleeping. VS done. No changes in rhythm. 2L/NC.
--- NOTE | 2024-04-11 04:30 | W.PN.CT ---
Today's Communication / Plan
-
-pod #2
-suspect overnight rhythm is CHB with junctional escape 50s (previously Mobitz 1) - review with Cardiology, follow am ECG, holding BB and Amio. BP is stable. Pt is asymptomatic.
-maintain pw, Cordis
-Echo today
-diuresed with 40 iv Lasix on 04/10 (UO 1150)
-follow rhythm
-encourage IS, OOB
Assessment / Plan
-
Assessment:
-S/P Right mini thoracotomy with right femoral artery and vein cannulation under MARCO guidance/Radical mitral valve repair (38 mm band annuloplasty, 3 pairs of [place]-Marlo cords with tube placed to the A2 and A3 scallop and 1 to the P2 P3 scallop, cleft
closure between P2 and P3, commissural plasty at A3 P3), by Tellez, 04/09/24, pod#2
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
-Severe mitral valve insufficiency, symptomatic under MARCO attempt
-LVEF 55% per intraop MARCO
-Severely dilated left atrium
-Mild dilated right atrium
-Mild AI
-Hypertension
-Hyperlipidemia
-Large hiatal hernia
-Nephrolithiasis
-Diverticulosis
-Small internal hemorrhoids
-Colon polyps S/P polypectomy,
-Acute postop blood loss/Anemia (stable without blood transfusion)
-Acute postop thrombocytopenia (stable without active bleed)
-Acute postop atelectasis
-Acute postop hypovolemia with subsequent hypervolemia
-Acute postop Mobitz 1 AV block on 04/10- holding Amio and BB- suspect CHB with junctional escape currently
Discussed patient care with: Nursing and Care Team
Subjective
Procedure
S/P Right mini thoracotomy with right femoral artery and vein cannulation under MARCO guidance/Radical mitral valve repair (38 mm band annuloplasty, 3 pairs of [place]-Marlo cords with tube placed to the A2 and A3 scallop and 1 to the P2 P3 scallop, cleft
closure between P2 and P3, commissural plasty at A3 P3), by Tellez, 04/09/24
-
Date of Service: April 11, 2024
Objective Data
-
PT 16.9 Sec (11.4-14.6) H 04/09/24 11:46
INR 1.39 04/09/24 11:46
APTT 28.8 Sec (23.4-35.0) 04/09/24 11:46
Vital Signs
Vital Signs
Temp Pulse Resp BP Pulse Ox
98 F 55 14 111/64 96
04/11/24 00:00 04/11/24 03:00 04/11/24 00:00 04/11/24 03:00 04/11/24 03:00
CT Intake/Output/Weight
04/10/24 04/10/24 04/11/24
06:59 18:59 06:59
Intake Total 198.8 / 663.1 1035.5 / 1305.5 270 / 1305.5
Output Total 475 / 1175 1245 / 1245
Balance -276.2 / -511.9 -209.5 / 60.5 270 / 60.5
SaO2: 96
Physical Exam
-
General: Awake, Oriented and AOx3
Cardiovascular: Regular rate & rhythm, No Murmurs, No Rub and No Gallop
Respiratory: Decreased Breath Sounds (at bases, otherwise clear)
Sternum: Stable
Incision: Clean, Dry, Intact and Dressing Intact
Extremities: No Edema b/l
Data Reviewed
-
Lab Results: Results Reviewed
Medications: Active Meds Reviewed
Chest X-Ray: Report Reviewed and Image Reviewed
ECG: Report Reviewed and Image Reviewed
[2024-04-11] MEDS: TYLENOL 1000 MG PO ×3 (06:15→20:01)
[2024-04-11 06:19] LABS: Hematocrit 37.9 % (39.0-52.0); Hemoglobin 13.1 g/dL (13.0-18.0); Mean Corp Hgb Conc. 34.6 g/dL (33.0-37.0); Mean Corpuscular Hgb 31.8 pg (27.0-31.0); Mean Platelet Volume 9.9 fL (7.4-10.4); Platelet Count 93 10^3/uL (130-400); Red Blood Cell Count 4.12 10^6/uL (4.70-6.10)
[2024-04-11 06:28] LABS: Blood Urea Nitrogen 28 mg/dl (9-20); Calcium 8.9 mg/dl (8.4-10.2); Carbon Dioxide 28 mmol/L (22-30); Chloride 104 mmol/L (98-107); Estimated Creatinine Clearance 113 ml/min; Glucose 116 mg/dl (70-99); Magnesium 2.3 mg/dl (1.6-2.3); Potassium 4.2 mmol/L (3.5-5.1); Sodium 139 mmol/L (135-145); eGFR > 60.00
--- NOTE | 2024-04-11 06:30 | PTCARENOTE ---
Labs done. EKG done, shown to PA. Pt helped up to void 375 mls urine, clear, concentrated yellow. Pt helped to chair. CHG bath given. New gown applied. Bed linens changed. PA in to see pt this am.
[2024-04-11] MEDS: SENOKOT-S 1 TABLET PO ×2 (09:07→20:01)
[2024-04-11] MEDS: MAGNESIUM OXIDE 500 MG PO ×2 (09:07→20:01)
[2024-04-11] MEDS: NEURONTIN 100 MG PO ×3 (09:07→20:01)
[2024-04-11] MEDS: PROTONIX 40 MG PO (09:07)
[2024-04-11] MEDS: LIPITOR 20 MG PO (09:07)
[2024-04-11] MEDS: BACTROBAN 2% OINTMENT 1 APPLIC NASAL ×2 (09:08→20:01)
[2024-04-11] MEDS: LOW STRENGTH ASPIRIN 81 MG PO (09:08)
--- NOTE | 2024-04-11 09:15 | PTCARENOTE ---
Assumed care of patient at 0700. Pt is awake, alert, and oriented. No complaints of pain at this time. Pt appears to be in second degree type 1 and occasionally in complete heart block. HR 60's. BP 125/63 MAP 82. Epicardial V wire in place,
currently off. Pulse oximetry 96% on room air. Pt achieving 2000 with IS, continued use encouraged. Pt tolerating PO diet. Right lateral chest incisions approximated, ecchymotic, and KEITH. Right IJ cordis in place with KVO. Pt currently resting
comfortably OOB in chair with call wood within reach.
--- NOTE | 2024-04-11 09:46 | W.PN.CARDCBS ---
Addendum entered and electronically signed by Dominic Alcantara MD 04/11/24 11:59:
I saw and examined the patient.
The INSURANCE ADMINISTRATOR or PA's note was reviewed and I agree with the note.
Comment: General: Well developed, well nourished in NAD.
Neck: Supple, no JVD, HJR, carotids +2 B/L, no bruits bilaterally.
Heart: Non displaced PMI, RRR, no murmurs, No S3, S4, no rubs.
Lungs: Scattered rhonchi
Extremities: No clubbing, cyanosis or edema bilaterally.
Neuro: Grossly nonfocal, awake, alert and oriented x3.
Telemetry with either Wenke Bach or complete heart block with adequate junctional escape rhythm. Likely due to postop inflammatory issues. Check echocardiogram. May need monitor on discharge. Discussed with CT surgery.
Original Note:
Today's Communication / Plan
-
Follow on tele
Narrow escape with reasonable rate for now
Impression / Plan
-
PCP: Dr. Cj Balderas
Cardiology: Dr. Alcantara
Impression:
s/p radical MV ring repair 04/09/24
h/o severe MR with flail mitral leaflet and prolapse of the posterior mitral leaflet by echo 02/13/24
Noncritical LAD disease by cath 04/02/24
Hyperlipidemia, LDL 129
Wenckebach
CHB with narrow junctional escape
Echo 02/13/24: EF 60 to 65%, mild septal hypertrophy, prolapse of the anterior mitral leaflet with possible torn cord consistent with flail leaflet, severe MR, evidence of flow reversal in the pulmonary veins c/w severe MR
MARCO 02/23/24: EF 55 to 60%, torn chordae attached to the anterior mitral leaflet suggestive of a flail mitral leaflet, prolapse of the posterior mitral leaflet, late systolic flow reversal in the pulmonary veins suggestive of severe MR
MARCO 04/09/24: Postop status post MV repair, RV LV function normal, EF 55%, MV annuloplasty band is well-seated with normal leaflet motion, no JANUSZ of the AMV leaflet noted, no MR or perivalvular leak
Plan:
-ECGs and tele reviewed 04/11/24. Patient with narrow escape and HRs in the 50s. He seems to be asymptomatic.
-Post-op orders for Lopressor 12.5 mg BID and amiodarone 200 mg TID on hold since 04/10/24. Patient was not taking AV niels blockers prior to admission
-LDL was 129 by outpatient labs 12/13/23 and on recheck 04/02/24 they were 140. Patient started on atorvastatin 20 mg daily since 04/02/24, recheck CVE 06/2024.
-No known FH as patient is adopted
HPI: Patient was seen by his PCP for a new patient evaluation on 12/08/23 and noted to have a new murmur. He was then sent to cardiology for evaluation and had an echo that revealed new severe MR. Patient then had cardiac cath that revealed
noncritical LAD disease. Patient is now s/p MV ring repair.
Progress Note - Advisory Application Developer
Subjective
Date of Service: April 11, 2024
No palpitations or lightheadedness
Objective
Labs:
04/11/24 05:50
04/11/24 05:50
Labs
Hgb 13.1 g/dL (13.0-18.0) 04/11/24 05:50
Hct 37.9 % (39.0-52.0) L 04/11/24 05:50
Plt Count 93 10^3/uL (130-400) L 04/11/24 05:50
PT 16.9 Sec (11.4-14.6) H 04/09/24 11:46
INR 1.39 04/09/24 11:46
APTT 28.8 Sec (23.4-35.0) 04/09/24 11:46
Sodium 139 mmol/L (135-145) 04/11/24 05:50
Potassium 4.2 mmol/L (3.5-5.1) 04/11/24 05:50
BUN 28 mg/dl (9-20) H 04/11/24 05:50
Creatinine 0.8 mg/dL (0.7-1.3) 04/11/24 05:50
Glucose 116 mg/dl (70-99) H 04/11/24 05:50
Vital Signs and I&O:
Vital Signs
Temp Pulse Resp BP Pulse Ox
98.2 F 67 18 125/63 97
04/11/24 09:04 04/11/24 09:04 04/11/24 09:04 04/11/24 09:03 04/11/24 09:04
Vital Signs
Temp Pulse Resp BP Pulse Ox
98.2 F 67 18 125/63 97
04/11/24 09:04 04/11/24 09:04 04/11/24 09:04 04/11/24 09:03 04/11/24 09:04
Intake & Output
04/09/24 04/10/24 04/11/24 04/12/24
06:59 06:59 06:59 06:59
Intake Total 652.4 / 663.1 1305.5 / 1305.5
Output Total 1155 / 1175 1620 / 1620
Balance -502.6 / -511.9 -314.5 / -314.5
Physical Exam
Physical Exam
GEN: NAD.
HEENT: MMM
LUNGS: No audible wheeze
CV: No murmur
ABD: ND
EXT: No edema B/L
NEURO: Gross non-focal
SKIN: No rash
[2024-04-11] MEDS: MUCINEX 1200 MG PO ×2 (10:53→20:00)
--- NOTE | 2024-04-11 11:49 | CM ---
Chart reviewed. Patient is independent of ADLS, lives with his in a 2 STH, 3-4 YONO, 0 DME. Plan is for the patient to return home with CT Transitional RN. CM to follow
--- NOTE | 2024-04-11 12:35 | PTCARENOTE ---
Pt ambulated in hallway with cardiac rehab, tolerated well. Remains in what appears to be CHB, CT DRY MOLDER aware. Epicardial V wire remains off. Pt remains on room air, pulse oximetry 96%. Voiding without issue in bathroom. Tolerating PO diet. Pt now
resting in bed awaiting ECHO.
[2024-04-11] MEDS: FERRLECIT 110 MG IV (15:05)
[2024-04-11] MEDS: NSS 500 IV (15:05)
--- NOTE | 2024-04-11 15:39 | PTCARENOTE ---
Addendum entered by Lior Venegas RN 04/11/24 15:44:
Vital signs remain stable, HR 60's. BP 132/71 MAP 87. Pulse oximetry 96% on room air.
Original Note:
No changes in assessment. ECHO completed. Pt remains CHB, medical team aware. Pt ambulating without issues.
--- NOTE | 2024-04-11 20:33 | PTCARENOTE ---
assumed care of patient @ 1900. received pt laying in bed, AOx3. VSS. complete heart block on tele HR 50s-60s. BP great. asymptomatic of complete heart block. V wire present connected to box, turned off. Lungs clear, diminished on room air satting
high 90s. IS ~ 2000. BM earlier today. Voiding in bathroom. All surgical sites CDI. R IJ cordis and PIV patent. pt resting comfortably in bed, call wood within reach .
[2024-04-12] VITALS (7 sets, daily range): BP systolic 133–155; BP diastolic 69–78; PULSE 65; O2SAT 95–98; BMI 27.0
--- NOTE | 2024-04-12 | PTCARENOTE ---
no change in assessment, pt resting comfortably with call wood within reach
--- NOTE | 2024-04-12 03:40 | W.PN.CT ---
Today's Communication / Plan
-
-pod #3
-remains in nsr with complete heart block and junctional escape low 50s - asymptomatic
-Echo 04/11 with normal EF 55-60%, mitral valve peak/mean gradient 10/5 mmHg, trace MR, mild AI
-holding Amio and BB d/t CHB
-encourage IS, OOB, ambulate
Assessment / Plan
-
Assessment:
-S/P Right mini thoracotomy with right femoral artery and vein cannulation under MARCO guidance/Radical mitral valve repair (38 mm band annuloplasty, 3 pairs of [place]-Marlo cords with tube placed to the A2 and A3 scallop and 1 to the P2 P3 scallop, cleft
closure between P2 and P3, commissural plasty at A3 P3), by Tellez, 04/09/24, pod#3
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
-Severe mitral valve insufficiency, symptomatic under MARCO attempt
-LVEF 55% per intraop MARCO
-Severely dilated left atrium
-Mild dilated right atrium
-Mild AI
-Hypertension
-Hyperlipidemia
-Large hiatal hernia
-Nephrolithiasis
-Diverticulosis
-Small internal hemorrhoids
-Colon polyps S/P polypectomy,
-Acute postop blood loss/Anemia (stable without blood transfusion)
-Acute postop thrombocytopenia (stable without active bleed)
-Acute postop atelectasis
-Acute postop hypovolemia with subsequent hypervolemia
-Acute postop Mobitz 1 AV block on 04/10- holding Amio and BB- suspect CHB with junctional escape currently
-postop Echo 04/11/24:
Normal left ventricular chamber size. Normal left ventricular systolic function. Normal regional wall motion. Mild concentric left ventricular hypertrophy. Left ventricular ejection fraction is 55-60%.
Mitral valve annuloplasty band is well seated with adequate mitral leaflet excursion. Mitral valve area by pressure halftime is calculated at 2.1 cm2 with peak/mean gradients across the mitral valve of 10/5 mmHg respectively.
Trace mitral regurgitation is seen.
Mildly dilated left atrium.
Since echocardiogram January 2024, patient is status post mitral valve repair and severe mitral regurgitation with anterior mitral valve prolapse is no longer present.
Discussed patient care with: Nursing and Care Team
Subjective
Procedure
S/P Right mini thoracotomy with right femoral artery and vein cannulation under MARCO guidance/Radical mitral valve repair (38 mm band annuloplasty, 3 pairs of [place]-Marlo cords with tube placed to the A2 and A3 scallop and 1 to the P2 P3 scallop, cleft
closure between P2 and P3, commissural plasty at A3 P3), by Tellez, 04/09/24
-
Date of Service: April 12, 2024
Objective Data
-
PT 16.9 Sec (11.4-14.6) H 04/09/24 11:46
INR 1.39 04/09/24 11:46
APTT 28.8 Sec (23.4-35.0) 04/09/24 11:46
Vital Signs
Vital Signs
Temp Pulse Resp BP Pulse Ox
97.7 F 56 14 143/72 96
04/11/24 20:00 04/12/24 00:05 04/12/24 00:00 04/12/24 00:05 04/12/24 00:00
CT Intake/Output/Weight
04/11/24 04/11/24 04/12/24
06:59 18:59 06:59
Intake Total 270 / 1305.5 90 / 150 60 / 150
Output Total 375 / 1620 300 / 300
Balance -105 / -314.5 -210 / -150 60 / -150
SaO2: 96
Physical Exam
-
General: Awake, Oriented and AOx3
Cardiovascular: Regular rate & rhythm, No Murmurs, No Rub and No Gallop
Respiratory: Decreased Breath Sounds (at bases, otherwise clear)
Sternum: Stable
Incision: Clean, Dry, Intact and Dressing Intact
Extremities: No Edema b/l
Data Reviewed
-
Lab Results: Results Reviewed
Medications: Active Meds Reviewed
Chest X-Ray: Report Reviewed and Image Reviewed
ECG: Report Reviewed and Image Reviewed
--- NOTE | 2024-04-12 04:28 | PTCARENOTE ---
labs drawn, pt resting comfortably, no change in assessment .
[2024-04-12 04:50] LABS: Hematocrit 38.8 % (39.0-52.0); Hemoglobin 13.3 g/dL (13.0-18.0); Mean Corp Hgb Conc. 34.3 g/dL (33.0-37.0); Mean Corpuscular Hgb 31.5 pg (27.0-31.0); Mean Corpuscular Volume 91.9 fL (80.0-94.0); Mean Platelet Volume 10.2 fL (7.4-10.4); Platelet Count 105 10^3/uL (130-400); Red Blood Cell Count 4.22 10^6/uL (4.70-6.10); White Blood Cell Count 9.4 10^3/uL (4.8-10.8)
[2024-04-12 05:07] LABS: Blood Urea Nitrogen 17 mg/dl (9-20); Carbon Dioxide 30 mmol/L (22-30); Chloride 104 mmol/L (98-107); Estimated Creatinine Clearance > 125 ml/min; Glucose 106 mg/dl (70-99); Magnesium 2.1 mg/dl (1.6-2.3); Potassium 4.4 mmol/L (3.5-5.1); Sodium 140 mmol/L (135-145); eGFR > 60.00
[2024-04-12] MEDS: TYLENOL 1000 MG PO (06:39)
[2024-04-12] MEDS: LOW STRENGTH ASPIRIN 81 MG PO (08:23)
[2024-04-12] MEDS: PROTONIX 40 MG PO (08:23)
[2024-04-12] MEDS: LIPITOR 20 MG PO (08:23)
[2024-04-12] MEDS: NEURONTIN 100 MG PO (08:23)
[2024-04-12] MEDS: BACTROBAN 2% OINTMENT 1 APPLIC NASAL (08:24)
[2024-04-12] MEDS: MAGNESIUM OXIDE 500 MG PO (08:24)
[2024-04-12] MEDS: MUCINEX 1200 MG PO (08:24)
[2024-04-12] MEDS: SENOKOT-S PO (08:28)
--- NOTE | 2024-04-12 09:02 | PTCARENOTE ---
assumed care of pt from previous shift RN, sinus rhythm on tele, VSS, + peripheral pulses, no edema, pacing wire maintained, Lungs diminished, pox 98% on RA, coughing and deep breathing encouraged. +bs, tolerating PO intake, voids spontaneously.
Surgical sites intact, cordis and PIV flush easily. plan of care reviewe dw the pt and questions encouraged.
--- NOTE | 2024-04-12 09:42 | W.PN.CARDCBS ---
Addendum entered and electronically signed by Bull Gerber MD 04/12/24 14:37:
I saw and examined the patient.
The Television Audio Engineer's note was reviewed and I agree with the note.
Comment:
GEN: No distress, awake, Ox3
HEENT: supple, anicteric, mmm
LUNGS: CTA, no wheezes/rales
CV: Reg, S1/S2, no rub
ABD: soft, BS+, NT/ND
EXT: No edema
NEURO: Gross non-focal
SKIN: No rash
PLan:
Remains in complete heart block with an adequate escape rhythm and no symptoms. Will ambulate patient today and if he feels well possible discharge.
If discharged will need to monitor as outpatient. Hold AV niels blockers.
Continue atorvastatin and aspirin.
Original Note:
Today's Communication / Plan
-
7 day Rhythm star monitor to be applied prior to d/c today
Impression / Plan
-
PCP: Dr. Cj Balderas
Cardiology: Dr. Alcantara
Impression:
s/p radical MV ring repair 04/09/24
h/o severe MR with flail mitral leaflet and prolapse of the posterior mitral leaflet by echo 02/13/24
Noncritical LAD disease by cath 04/02/24
Hyperlipidemia, LDL 129
Wenckebach
CHB with narrow junctional escape
Echo 02/13/24: EF 60 to 65%, mild septal hypertrophy, prolapse of the anterior mitral leaflet with possible torn cord consistent with flail leaflet, severe MR, evidence of flow reversal in the pulmonary veins c/w severe MR
MARCO 02/23/24: EF 55 to 60%, torn chordae attached to the anterior mitral leaflet suggestive of a flail mitral leaflet, prolapse of the posterior mitral leaflet, late systolic flow reversal in the pulmonary veins suggestive of severe MR
MARCO 04/09/24: Postop status post MV repair, RV LV function normal, EF 55%, MV annuloplasty band is well-seated with normal leaflet motion, no JANUSZ of the AMV leaflet noted, no MR or perivalvular leak
Echo 04/11/24: EF 55%, mitral valve annuloplasty band is well-seated with adequate mitral leaflet excursion, peak/mean 10/5 mmHg with only trace MR
Plan:
-ECG 04/12/24 reviewed by me and patient remains in complete heart block with narrow escape and HR 58.
-Last dose of Lopressor was 25 mg PO x1 on 04/09/24 AM. No doses of amiodarone given. Patient was not taking AV niels blockers prior to admission
-I have ordered and arranged for a 7 day Rhythm Star monitor that will be applied prior to d/c on 04/12/24
-LDL was 129 by outpatient labs 12/13/23 and on recheck 04/02/24 they were 140. Patient started on atorvastatin 20 mg daily since 04/02/24, recheck CVE 06/2024.
-No known FH as patient is adopted
-Cardiology follow up arranged
HPI: Patient was seen by his PCP for a new patient evaluation on 12/08/23 and noted to have a new murmur. He was then sent to cardiology for evaluation and had an echo that revealed new severe MR. Patient then had cardiac cath that revealed
noncritical LAD disease. Patient is now s/p MV ring repair.
Progress Note - Sexual Assault Nurse
Subjective
Date of Service: April 12, 2024
He feels well, no lightheadedness
Objective
Labs:
04/12/24 04:12
04/12/24 04:12
Labs
Hgb 13.3 g/dL (13.0-18.0) 04/12/24 04:12
Hct 38.8 % (39.0-52.0) L 04/12/24 04:12
Plt Count 105 10^3/uL (130-400) L 04/12/24 04:12
PT 16.9 Sec (11.4-14.6) H 04/09/24 11:46
INR 1.39 04/09/24 11:46
APTT 28.8 Sec (23.4-35.0) 04/09/24 11:46
Sodium 140 mmol/L (135-145) 04/12/24 04:12
Potassium 4.4 mmol/L (3.5-5.1) 04/12/24 04:12
BUN 17 mg/dl (9-20) 04/12/24 04:12
Creatinine 0.7 mg/dL (0.7-1.3) 04/12/24 04:12
Glucose 106 mg/dl (70-99) H 04/12/24 04:12
Vital Signs and I&O:
Vital Signs
Temp Pulse Resp BP Pulse Ox
97.8 F 61 16 133/69 98
04/12/24 08:21 04/12/24 08:21 04/12/24 08:21 04/12/24 08:21 04/12/24 09:13
Vital Signs
Temp Pulse Resp BP Pulse Ox
97.8 F 61 16 133/69 98
04/12/24 08:21 04/12/24 08:21 04/12/24 08:21 04/12/24 08:21 04/12/24 09:13
Intake & Output
04/10/24 04/11/24 04/12/24 04/13/24
06:59 06:59 06:59 06:59
Intake Total 652.4 / 663.1 1305.5 / 1305.5 670 / 670 110 / 110
Output Total 1155 / 1175 1620 / 1620 300 / 300
Balance -502.6 / -511.9 -314.5 / -314.5 370 / 370 110 / 110
Physical Exam
Physical Exam
GEN: NAD.
HEENT: MMM
LUNGS: No audible wheeze
CV: No murmur
ABD: ND
EXT: No edema B/L
NEURO: Gross non-focal
SKIN: No rash
--- NOTE | 2024-04-12 11:15 | CM ---
Chart reviewed. Patient is independent of ADLS, lives with his in a 2 STH, 3-4 YOON, 0 DME. Plan is for the patient to return home with CT Transitional RN. CM to follow
--- NOTE | 2024-04-12 11:23 | W.DCSUMMARY ---
Discharge Summary
Discharge Data
Date of Admission: 04/09/24
Date of Discharge: 04/12/24
Total time spent discharging patient (in min): 40
-
Pending Results: No
Hospital Course
Primary care physician:
Dr. Fairbanks
Outpatient heel sprayer:
Dr. Alcantara
Inpatient consultants:
[facility], presbyterian clergy
Procedures:
1. Radical mitral valve repair (38 mm band annuloplasty, 3 pairs of [place]-Marlo cords with tube placed to the A2 and A3 scallop and 1 to the P2 P3 scallop, cleft closure between P2 and P3, commissural plasty at A3 P3)
Primary Diagnosis:
1. Myxomatous mitral valve degeneration with severe insufficiency
Secondary Diagnoses:
1. Hypertension
2. Hyperlipidemia
3. Large hiatal hernia
4. Nephrolithiasis
5. Post-op Complete heart block
HPI: 63-year-old male with known mitral valve insufficiency. He underwent an attempted transesophageal echocardiogram and went into respiratory distress requiring us to abort the procedure. due to his intolerance of the procedure, Dr. Tellez
offered surgery and presented on 04/09 for MV repair.
Hospital course:
Postoperatively, patient returned to the CVICU on levophed, precedex, and insulin. Precedex was turned off and patient was extubated. He was eventually weaned off levo and was started on Cardene for blood pressure control. On 04/10 POD #1, his
heart rhythm as changed to 2nd degree heart block. BB and amio was placed on hold. Blood pressure was stable. He was diuresed with 40mg IV lasix and CT was removed. On 04/11 postoperative day #2, his heart rhythm progressed to complete heart block.
However blood pressure remained stable. Patient continued to ambulate without issue. On 04/12 postoperative day and 3, patient remained in complete heart block with stable vital signs. After discussion with cardiology it was decided he would be
discharged with a heart monitor. Epicardial wire was cut at the skin without issue and Cordis catheter was removed.
Home medication changes:
see below
Discharge Plan
-
Patient Disposition: Home (Routine Discharge)
Discharge Diagnosis/Procedures: MV repair
Condition: Good
Diet: Regular
Activity: No strenuous activity
Driving Restrictions: Not until seen by your Dr
Bathing Restrictions: OK to Shower
Other Services: Cardiac Rehab
Specialty Instructions: Weigh Daily- Call MD for wt gain/loss 3 lbs overnight/5 lbs in 1 week
Activity Restrictions/Additional Instructions:
ACTIVITY:
-No strenuous activity: no heavy lifting, pushing, pulling anything over 15 pounds for one month
-continue to use stairs as tolerated
DRIVING RESTRICTIONS:
-No driving for one month or until approved by your surgeon
WOUND CARE:
-Shower daily. Use soap & water.
-No lotions, creams or powders on incision area.
DIET:
-continue a low fat/low cholesterol diet.
-IF you are diabetic, continue carb controlled diet.
CARDIAC REHAB:
-Please make appointment to start in 5-6 weeks with your local hospital program. (See Cardiac Rehabilitation Discharge Booklet).
SPECIALTY INSTRUCTIONS:
-Weigh yourself daily. Call your physician for any weight gain/loss of 3 lbs overnight or 5 lbs in one week.
-REPORT any clicking noise or uneven appearance of your sternum to your surgeon immediately.
-If you smoke, you are instructed to quit. The OR smoking hotline phone number is [phone]
Instructions: Ambulatory Cardiac Monitoring (DC)
Referrals:
CT Transitional Care Nurse [Outside] (The Cardiothoracic Transitional Care Nurse will call you to set up a visit in 1-2 days.)
[facility] [Outside] - 05/17/24 11:30 am
(Cardiac Rehab Orientation appointment is on 05/17/24 at 1130.
The Cardiac Rehab gym is located on the first floor of the [facility].)
Cj Fairbanks MD [Family Provider] -
Dominic Alcantara MD [Active] - 05/24/24 2:40 pm
Trever Tellez MD [Active] - 05/16/24 2:30 pm
Prescriptions:
New
acetaminophen 325 mg Tablet
650 mg PO Q4HPRN PRN (Reason: mild pain,headache,temp >101F ) Qty: 0 0RF
gabapentin 100 mg Capsule
100 mg PO TID PRN (Reason: post op pain) Qty: 30 0RF
guaifenesin 600 mg Tablet Extended Release 12hr
1,200 mg PO Q12 PRN (Reason: cough) Qty: 30 0RF
Continued
aspirin 81 mg tablet,delayed release (DR/EC)
81 mg PO DAILY Qty: 1 0RF
atorvastatin 20 mg tablet
20 mg PO DAILY Qty: 90 3RF
Discharge Orders:
Discharge Patient (As Directed); Ordered 04/12/24
Ordered By: Chelita Dunbar
Care Plan Goals
Care Plan Goals:
Problem: Readiness for enhanced knowledge related to diagnosis and treatment plan
Goal: Understand your diagnosis and treatment plan needs, including medications if applicable.
Instructions: Know your diagnosis, underlying causes and treatment plan options, including medications if applicable. Consult with your health care team to learn about your diagnosis and treatment plan, including medications if applicable.
Discharge Date and Time
Print Language: LATVIAN
[2024-04-12] MEDS: NSS IV (12:30)
--- NOTE | 2024-04-12 12:31 | PTCARENOTE ---
pt assisted to bed, cordis removed, epicardial wire wires cut by CT IMANI.
--- NOTE | 2024-04-12 16:08 | PTCARENOTE ---
pt tolerated shower, IV line and tele monitor d/c'ed, rhythm star monitor placed. follow up appointments, d/c instructions and medication list reviewed w the pt and questions encouraged.
[2024-04-12] MEDS: NEURONTIN PO (16:12)
[2024-04-12] MEDS: FERRLECIT IV (16:12)
[2024-04-12] MEDS: TYLENOL PO (16:12)
== END 2024-04-12 16:00 | disposition home or self-care (01) | DRG 219 ==
LOC: CVICU 05:02
PROVIDERS: Anesthesiology; Clinical Nurse Specialist Acute Care; ADMITTING PHYSICIAN Thoracic Surgery (Cardiothoracic Vascular Surgery); CONSULT PHYSICIAN Internal Medicine Critical Care Medicine; FAMILY PHYSICIAN Internal Medicine
PROC: 02UG0JZ Supplement Mitral Valve with Synthetic Substitute, Open Approach (ICD-10-PCS; 2024-04-09)
PROC: B24BZZ4 Ultrasonography of Heart with Aorta, Transesophageal (ICD-10-PCS; 2024-04-09)
DX: I34.0 Nonrheumatic mitral (valve) insufficiency (principal); I51.1 Rupture of chordae tendineae, not elsewhere classified; D62 Acute posthemorrhagic anemia; I44.2 Atrioventricular block, complete; J98.11 Atelectasis; I10 Essential (primary) hypertension; D69.59 Other secondary thrombocytopenia; E78.5 Hyperlipidemia, unspecified; K44.9 Diaphragmatic hernia without obstruction or gangrene; N20.0 Calculus of kidney; E86.1 Hypovolemia; E87.70 Fluid overload, unspecified; Z79.82 Long term (current) use of aspirin; Z79.899 Other long term (current) drug therapy; Z87.442 Personal history of urinary calculi
CPT/HCPCS: 88305; 93308; 36415; 71045; 80048; 80053; 81003; 82248; 82330; 82565; 82805; 82947; 82962; 83036; 83735; 84132; 84302; 84520; 85014; 85018; 85025; 85027; 85049; 85610; 85730; 86850; 86900; 86901; 86920; 87070; 93005; 93312; 93320; 93321; 93325; 93880; 94002; J2916

== ENCOUNTER 2024-05-17 14:26 | Outpatient (RCR) | payer BC, SELFPAY | END 2024-05-17 23:59 | disposition home or self-care (01) | LOC: CRHB 14:26 | PROVIDERS: ATTENDING PHYSICIAN Internal Medicine Cardiovascular Disease; FAMILY PHYSICIAN Internal Medicine | DX: Z95.4 Presence of other heart-valve replacement (principal) | CPT/HCPCS: 93798 ==

== ENCOUNTER 2024-06-15 08:41 | Outpatient (RCR) | payer BC, SELFPAY | END 2024-06-15 23:59 | disposition home or self-care (01) | LOC: CRHB 08:41 | PROVIDERS: ATTENDING PHYSICIAN Internal Medicine Cardiovascular Disease; FAMILY PHYSICIAN Internal Medicine | DX: Z95.1 Presence of aortocoronary bypass graft (principal); I10 Essential (primary) hypertension; E78.5 Hyperlipidemia, unspecified; Z95.4 Presence of other heart-valve replacement | CPT/HCPCS: 93797; 93798 ==

== ENCOUNTER 2024-07-16 08:46 | Outpatient (RCR) | payer BC, SELFPAY | END 2024-07-16 23:59 | disposition home or self-care (01) | LOC: CRHB 08:46 | PROVIDERS: ATTENDING PHYSICIAN Internal Medicine Cardiovascular Disease; FAMILY PHYSICIAN Internal Medicine | DX: Z95.1 Presence of aortocoronary bypass graft (principal); Z95.4 Presence of other heart-valve replacement (principal) | CPT/HCPCS: 93798; G0422 ==

== ENCOUNTER 2024-08-17 07:27 | Outpatient (RCR) | payer BC, SELFPAY | END 2024-08-17 07:55 | disposition home or self-care (01) | LOC: CRHB 07:27 | PROVIDERS: ATTENDING PHYSICIAN Internal Medicine Cardiovascular Disease; FAMILY PHYSICIAN Internal Medicine | DX: Z95.4 Presence of other heart-valve replacement (principal) | CPT/HCPCS: 93797; 93798; G0422 ==

== ENCOUNTER → 2024-10-29 14:36 | Outpatient (REF) | payer BC, SELFPAY | LOC: RCS 14:36 | PROVIDERS: ATTENDING PHYSICIAN Thoracic Surgery (Cardiothoracic Vascular Surgery); FAMILY PHYSICIAN Internal Medicine; OTHER PHYSICIAN Internal Medicine Cardiovascular Disease | DX: Z98.890 Other specified postprocedural states (principal) | CPT/HCPCS: 93306 ==